=== PATIENT | male | born 2000 | race African-American/Black ===

== ENCOUNTER 2018-01-01 01:04 | Emergency (ER) | payer OTHER ==
[~2018-01-01] VITALS: Ht 185.4 cm; Wt 132.0 kg
[2018-01-01 02:21] LABS: CLARITY URINE CLEAR (CLEAR); COLOR URINE YELLOW (YELLOW); KETONES URINE NEGATIVE (NEGATIVE); LEUKOCYTE ESTERASE URINE NEGATIVE (NEGATIVE); NITRITE URINE NEGATIVE (NEGATIVE); OCCULT BLOOD URINE NEGATIVE (NEGATIVE); PH URINE 5.5 (4.5-8.0); PROTEIN URINE NEGATIVE (NEGATIVE); SPECIFIC GRAVITY URINE 1.036 (1.005-1.030); UROBILINOGEN URINE 0.2 E.U./dL (0.2-1.0)
[2018-01-01] MEDS ORDERED: CEFTRIAXONE SODIUM 250 MG/VIAL IM ONE (03:00)
[2018-01-01] MEDS ORDERED: AZITHROMYCIN 500 MG TABLET PO ONE (03:00)
[2018-01-01] MEDS ORDERED: LIDOCAINE HCL/PF 1% 10 MG/ML 30ML VIAL ONE (03:23)
[2018-01-01 03:43] VITALS: BP 146/79
== END 2018-01-01 03:45 | disposition home or self-care (01) ==
LOC: ER 01:04
DX: N48.1 Balanitis (principal); E11.65 Type 2 diabetes mellitus with hyperglycemia
CPT/HCPCS: 81003; 82962; 86592; 96372; 99284; J0696; J3490; Z7610

== ENCOUNTER 2018-01-18 20:50 | Emergency (ER) | payer OTHER ==
[~2018-01-18] VITALS: Ht 185.4 cm; Wt 131.0 kg
[2018-01-19 01:37] LABS: CLARITY URINE CLEAR (CLEAR); COLOR URINE YELLOW (YELLOW); KETONES URINE TRACE (NEGATIVE); LEUKOCYTE ESTERASE URINE 2+ (NEGATIVE); NITRITE URINE NEGATIVE (NEGATIVE); OCCULT BLOOD URINE NEGATIVE (NEGATIVE); PROTEIN URINE NEGATIVE (NEGATIVE); SPECIFIC GRAVITY URINE 1.033 (1.005-1.030)
[2018-01-19 03:00] VITALS: BP 110/58
== END 2018-01-19 03:00 | disposition home or self-care (01) ==
LOC: ER 20:50
DX: N48.1 Balanitis (principal); N39.0 Urinary tract infection, site not specified; E11.9 Type 2 diabetes mellitus without complications
CPT/HCPCS: 81003; 99283